=== PATIENT | female | born 1965 | race Caucasian/White ===

== ENCOUNTER → 2017-04-24 | Outpatient (CLI) | payer OTHER ==
--- NOTE | ~2017-04-24 | ST ---
[place], [place] EXERCISE STRESS TEST REPORT NAME: EDE INIGUEZ MERGED WITH [facility] #: [id number] UNIT #: [id number] ROOM: DOCTOR: ANDREW DUMAS MD BIRTHDATE: [birth year] DOS: The patient walked on the Chuy protocol, duration of 6 minutes 30 seconds. Heart rate is 156 more than 90% of predicted heart rate. Procedure terminated on completion of the protocol. Baseline cardiogram normal sinus rhythm with nonspecific ST-T changes. With exercise, no new EKG changes suggestion of myocardial ischemia. The patient had no chest discomfort, no dysrhythmia, normal blood pressure and heart rate response with adequate double product. FINAL IMPRESSION: Normal exercise stress test without any evidence of ischemic changes. No chest discomfort. No dysrhythmia. Blood pressure and heart rate response was normal. This is a normal exercise stress test without any evidence of ischemia by EKG criteria and symptoms. ANDREW DUMAS MD CM:STRESS:EXERCISE STRESS TEST REPORT [id number] ANDREW DUMAS MD
== END | disposition home or self-care (01) ==
LOC: CARD 02:27
DX: Z86.79 Personal history of other diseases of the circulatory system (principal)

== ENCOUNTER 2017-10-14 15:05 | Emergency (ER) | payer OTHER ==
[~2017-10-14] VITALS: Ht 154.9 cm; Wt 68.0 kg
[2017-10-14 15:11] VITALS: BP 143/78
[2017-10-14 15:34] LABS: BILIRUBIN NEGATIVE (NEGATIVE); BLOOD NEGATIVE (NEGATIVE); CLARITY CLEAR (CLEAR); COLOR YELLOW (YELLOW); GLUCOSE NEGATIVE (NEGATIVE); KETONE NEGATIVE (NEGATIVE); LEUKO ESTERASE NEGATIVE (NEGATIVE); NITRITE NEGATIVE (NEGATIVE); UROBILINOGEN 0.2 E.U./dl (0.2-1.0)
[2017-10-14 15:40] LABS: BACTERIA 2+; RBC 0-2 rbc/hpf (0-2); WBC 0-2 wbc/hpf (0-5)
[2017-10-14 16:08] LABS: BASO # 0.1 10*3/uL (0.0-0.1); BASO % 0.8 % (0.0-1.0); EOS # 0.2 10*3/uL (0.0-0.4); HEMATOCRIT 46.2 % (37.0-47.0); HEMOGLOBIN 15.9 g/dl (12.0-16.0); LYMPH % 33.4 % (27.0-41.0); MEAN CELL VOLUME 93.1 fl (81.0-99.0); MEAN CORPUSCULAR HGB 32.1 pg (27.0-31.0); MEAN CORPUSCULAR HGB CONC 34.4 g/dl (33.0-37.0); MEAN PLATELET VOLUME 9.8 fl (9.6-12.3); MONO # 0.6 10*3/uL (0.1-1.0); MONO % 6.7 % (3.0-9.0); NEUT % 56.7 % (47.0-73.0); PLATELET COUNT AUTOMATED 235 10*3/uL (130-400); RED BLOOD COUNT 4.96 10*6/uL (4.10-5.10); RED CELL DISTRI WIDTH 12.5 % (0-14.5); WHITE BLOOD COUNT 8.9 10*3/uL (4.8-10.8)
[2017-10-14 16:50] LABS: ALBUMIN 3.6 gm/dl (3.1-4.5); ALKALINE PHOSPHATASE 95 U/L (45-117); BUN 6 mg/dl (7-24); CHLORIDE 105 mmol/L (98-107); CREATININE 0.78 mg/dL (0.55-1.02); LIPASE 124 U/L (73-393); POTASSIUM 4.3 mmol/L (3.5-5.1); SGOT/AST 22 IU/L (3-35); SGPT/ALT 25 U/L (12-78); SODIUM 140 mmol/L (136-145); TOTAL PROTEIN 7.5 gm/dL (6.4-8.2)
== END 2017-10-14 18:25 | disposition home or self-care (01) ==
LOC: ED 15:05
PROVIDERS: Physician Assistant
DX: R10.32 Left lower quadrant pain (principal); F17.200 Nicotine dependence, unspecified, uncomplicated; F10.10 Alcohol abuse, uncomplicated; Z90.710 Acquired absence of both cervix and uterus

== ENCOUNTER → 2017-10-17 | Outpatient (CLI) | payer OTHER | END | disposition home or self-care (01) | LOC: RAD 14:59 | DX: M54.5 Low back pain (principal); R10.2 Pelvic and perineal pain ==

== ENCOUNTER → 2017-10-23 | Outpatient (CLI) | payer OTHER | LOC: US 15:35 | DX: Z90.710 Acquired absence of both cervix and uterus (principal); Z90.721 Acquired absence of ovaries, unilateral ==

== ENCOUNTER → 2022-02-23 | Outpatient (CLI) | payer OTHER | END | disposition home or self-care (01) | LOC: RAD 08:19 | PROVIDERS: ATTEND Nurse Practitioner Family | DX: R10.13 Epigastric pain (principal); K29.71 Gastritis, unspecified, with bleeding; R42 Dizziness and giddiness ==

== ENCOUNTER → 2022-03-17 | Outpatient (CLI) | payer OTHER | END | disposition home or self-care (01) | LOC: RAD 11:49 | PROVIDERS: ATTEND Nurse Practitioner Family | DX: R55 Syncope and collapse (principal); Z72.0 Tobacco use; Z85.3 Personal history of malignant neoplasm of breast; Z86.79 Personal history of other diseases of the circulatory system ==

== ENCOUNTER → 2022-04-05 | Outpatient (CLI) | payer OTHER ==
[~2022-04-05] MED LIST: DICYCLOMINE HYD20 MG PO; PRILOSEC20 M1 PO
== END | disposition home or self-care (01) ==
LOC: CARD 03-29 10:00
PROVIDERS: ATTEND Nurse Practitioner Family
DX: R55 Syncope and collapse (principal); Z86.79 Personal history of other diseases of the circulatory system; Z83.3 Family history of diabetes mellitus; Z72.0 Tobacco use

== ENCOUNTER → 2022-04-11 | Outpatient (CLI) | payer OTHER | END | disposition home or self-care (01) | LOC: CARD 01:24 | PROVIDERS: ATTEND Nurse Practitioner Family | DX: I35.8 Other nonrheumatic aortic valve disorders (principal); Z72.0 Tobacco use; Z86.79 Personal history of other diseases of the circulatory system; Z83.3 Family history of diabetes mellitus; R55 Syncope and collapse ==

== ENCOUNTER → 2022-04-12 | Outpatient (CLI) | payer OTHER | END | disposition home or self-care (01) | LOC: CARD 00:29 | PROVIDERS: ATTEND Nurse Practitioner Family | DX: R55 Syncope and collapse (principal); R07.89 Other chest pain; Z86.79 Personal history of other diseases of the circulatory system; Z83.3 Family history of diabetes mellitus; Z72.0 Tobacco use ==

== ENCOUNTER → 2022-05-16 | Outpatient (CLI) | payer OTHER | END | disposition home or self-care (01) | LOC: US 13:17 | PROVIDERS: ATTEND Nurse Practitioner Family | DX: I65.23 Occlusion and stenosis of bilateral carotid arteries (principal); R29.898 Other symptoms and signs involving the musculoskeletal system ==

== ENCOUNTER → 2022-05-31 | Outpatient (CLI) | payer OTHER | END | disposition home or self-care (01) | LOC: MRI 00:15 | PROVIDERS: ATTEND Nurse Practitioner Family | DX: R41.3 Other amnesia (principal); R29.898 Other symptoms and signs involving the musculoskeletal system; E23.6 Other disorders of pituitary gland; R42 Dizziness and giddiness; R55 Syncope and collapse ==

== ENCOUNTER 2023-03-20 13:38 | Emergency (ER) | payer OTHER ==
[~2023-03-20] VITALS: Ht 157.4 cm; Wt 63.5 kg
[2023-03-20 14:13] VITALS: BP 130/56
== END 2023-03-20 16:37 | disposition home or self-care (01) ==
LOC: ED 13:38
DX: S90.31XA Contusion of right foot, initial encounter (principal); Z79.899 Other long term (current) drug therapy; Z90.710 Acquired absence of both cervix and uterus; F17.200 Nicotine dependence, unspecified, uncomplicated; W22.8XXA Striking against or struck by other objects, initial encounter; Y93.89 Activity, other specified; Y92.89 Other specified places as the place of occurrence of the external cause; Y99.8 Other external cause status

== ENCOUNTER → 2023-05-14 | Outpatient (CLI) | payer OTHER | END | disposition home or self-care (01) | LOC: LAB 12:24 | PROVIDERS: ATTEND Nurse Practitioner Family | DX: E53.8 Deficiency of other specified B group vitamins (principal); R63.4 Abnormal weight loss; Z72.0 Tobacco use; Z83.3 Family history of diabetes mellitus ==

== ENCOUNTER → 2023-05-15 | Outpatient (CLI) | payer OTHER ==
[2023-05-15 10:38] LABS: BASO # 0.1 10*3/uL (0.0-0.1); BASO % 0.9 % (0.0-1.0); EOS # 0.1 10*3/uL (0.0-0.4); HEMATOCRIT 47.7 % (37.0-47.0); LYMPH # 2.8 10*3/uL (1.3-4.4); LYMPH % 28.7 % (27.0-41.0); MEAN CELL VOLUME 93.9 fl (81.0-99.0); MEAN CORPUSCULAR HGB 31.7 pg (27.0-31.0); MEAN CORPUSCULAR HGB CONC 33.8 g/dl (33.0-37.0); MONO # 0.5 10*3/uL (0.1-1.0); MONO % 5.2 % (3.0-9.0); NEUT # 6.3 10*3/uL (2.3-7.9); PLATELET COUNT AUTOMATED 232 10*3/uL (130-400); RED BLOOD COUNT 5.08 10*6/uL (4.10-5.10); RED CELL DISTRI WIDTH 12.6 % (0-14.5); WHITE BLOOD COUNT 9.9 10*3/uL (4.8-10.8)
[2023-05-15 11:16] LABS: ALKALINE PHOSPHATASE 98 U/L (46-116); CHLORIDE 105 mmol/L (98-107); CHOLESTEROL 183 mg/dL (<200); FREE T4 1.06 ng/dl (0.89-1.76); LDL CHOLESTEROL 89 mg/dL (9-159); POTASSIUM 3.9 mmol/L (3.4-5.1); SGPT/ALT 8 U/L (10-49); T3 UPTAKE 19.3 % (22.4-36.7); THYROID STIM HORMONE (HS) 0.564 uIU/ml (0.550-4.780); TOTAL PROTEIN 7.4 gm/dL (6.0-8.0); TRIGLYCERIDES 266 mg/dl (<150)
[2023-05-15 11:23] LABS: BUN < 5 mg/dl (9-23)
== END | disposition home or self-care (01) ==
LOC: LAB 10:04
PROVIDERS: ATTEND Nurse Practitioner Family
DX: E53.8 Deficiency of other specified B group vitamins (principal); R63.4 Abnormal weight loss; Z83.3 Family history of diabetes mellitus; Z72.0 Tobacco use

== ENCOUNTER → 2023-11-01 | Outpatient (CLI) | payer OTHER ==
[2023-11-01 08:54] LABS: BASO # 0.1 10*3/uL (0.0-0.1); BASO % 0.9 % (0.0-1.0); EOS # 0.1 10*3/uL (0.0-0.4); EOS % 2.2 % (1.0-4.0); HEMATOCRIT 48.6 % (37.0-47.0); LYMPH % 31.3 % (27.0-41.0); MEAN CELL VOLUME 93.5 fl (81.0-99.0); MEAN CORPUSCULAR HGB 32.1 pg (27.0-31.0); MEAN CORPUSCULAR HGB CONC 34.4 g/dl (33.0-37.0); MEAN PLATELET VOLUME 9.4 fl (9.6-12.3); MONO # 0.4 10*3/uL (0.1-1.0); MONO % 5.9 % (3.0-9.0); NEUT # 3.8 10*3/uL (2.3-7.9); NEUT % 59.5 % (47.0-73.0); PLATELET COUNT AUTOMATED 205 10*3/uL (130-400); RED CELL DISTRI WIDTH 12.1 % (0-14.5); WHITE BLOOD COUNT 6.5 10*3/uL (4.8-10.8)
[2023-11-01 09:49] LABS: ALKALINE PHOSPHATASE 92 U/L (46-116); CHLORIDE 111 mmol/L (98-107); CHOLESTEROL 176 mg/dL (<200); LDL CHOLESTEROL 95 mg/dL (9-159); POTASSIUM 4.7 mmol/L (3.4-5.1); SGPT/ALT 9 U/L (5-49); TOTAL PROTEIN 7.1 gm/dL (6.0-8.0); TRIGLYCERIDES 169 mg/dl (<150)
[2023-11-01 09:50] LABS: BUN < 5 mg/dl (9-23)
== END | disposition home or self-care (01) ==
LOC: LAB 08:32
PROVIDERS: ATTEND Nurse Practitioner Family
DX: E53.8 Deficiency of other specified B group vitamins (principal); D58.2 Other hemoglobinopathies; Z72.0 Tobacco use

== ENCOUNTER → 2024-05-16 | Outpatient (CLI) | payer OTHER ==
[2024-05-16 08:33] LABS: BASO # 0.1 10*3/uL (0.0-0.1); EOS # 0.2 10*3/uL (0.0-0.4); EOS % 2.4 % (1.0-4.0); HEMATOCRIT 47.5 % (37.0-47.0); LYMPH # 2.3 10*3/uL (1.3-4.4); LYMPH % 28.3 % (27.0-41.0); MEAN CELL VOLUME 94.6 fl (81.0-99.0); MEAN CORPUSCULAR HGB 31.5 pg (27.0-31.0); MEAN CORPUSCULAR HGB CONC 33.3 g/dl (33.0-37.0); MONO # 0.6 10*3/uL (0.1-1.0); MONO % 7.7 % (3.0-9.0); NEUT # 4.8 10*3/uL (2.3-7.9); NEUT % 60.2 % (47.0-73.0); PLATELET COUNT AUTOMATED 202 10*3/uL (130-400); RED BLOOD COUNT 5.02 10*6/uL (4.10-5.10); RED CELL DISTRI WIDTH 12.4 % (0-14.5); WHITE BLOOD COUNT 7.9 10*3/uL (4.8-10.8)
[2024-05-16 09:29] LABS: ALKALINE PHOSPHATASE 93 U/L (46-116); CHLORIDE 108 mmol/L (98-107); CHOLESTEROL 188 mg/dL (<200); LDL CHOLESTEROL 100 mg/dL (9-159); SGPT/ALT 10 U/L (5-49); TRIGLYCERIDES 230 mg/dl (<150)
[2024-05-16 09:36] LABS: BUN < 5 mg/dl (9-23)
== END ==
LOC: LAB 08:17
PROVIDERS: ATTEND Nurse Practitioner Family
DX: Z12.31 Encounter for screening mammogram for malignant neoplasm of breast (principal); H60.502 Unspecified acute noninfective otitis externa, left ear; F17.210 Nicotine dependence, cigarettes, uncomplicated; D58.2 Other hemoglobinopathies; E78.1 Pure hyperglyceridemia